=== PATIENT | male | born 1980 | race African-American/Black ===

== ENCOUNTER 2018-11-14 02:56 | Emergency (ER) | payer MEDICARE, MEDICAID ==
[2018-11-14 03:29] LABS: #Basophils 0.1 thou/uL (0.0-0.2); #Eosinphils 0.2 thou/uL (0.0-0.7); #Lymphocytes 4.4 thou/uL (1.20-3.40); #Monocytes 0.8 thou/uL (0.11-0.59); #Neutrophils 6.7 thou/uL (1.40-6.50); %Basophils 0.9 % (0.0-1.0); %Eosinophils 1.9 % (0.0-10.0); %Lymphocytes 36.4 % (21.0-51.0); %Monocytes 6.2 % (0.0-10.0); %Neutrophils 54.6 % (42.0-75.0); Hemoglobin 14.9 g/dL (14.0-18.0); Mean Corpuscular HGB CONC 33.1 g/dL (32.0-36.0); Mean Corpuscular Hemoglobin 28.2 pg (27.0-31.0); Mean Corpuscular Volume 85.3 fL (78.0-98.0); Mean Platelet Volume 7.2 fL (7.4-10.4); Platelet Count 338 thou/uL (130-400); RBC Distribution Width 13.2 % (11.5-14.5); Red Blood Cell (RBC) Count 5.27 mill/uL (4.70-6.10); White Blood Cell (WBC) Count 12.2 thou/uL (4.8-10.8)
[2018-11-14 03:37] LABS: Bilirubin Negative (Negative); Blood, Urine Trace (Negative); Clarity CLEAR (Clear); Glucose, Urine (Dipstick) Negative (Negative); Leukocyte Negative (Negative); Nitrite Negative (Negative); Protein, Urine (Dipstick) Negative (Neg-Trace); Specific Gravity, Urine 1.014 (1.002-1.036)
[2018-11-14 03:38] LABS: Bacteria/HPF None Seen HPF (None Seen); Hyaline Casts/LPF 0-3 HYALINE CAST LPF (0-3 Hyaline); Squamous Epithelial None Seen HPF (0-3); WBC/HPF None Seen HPF (0-3)
[2018-11-14 03:52] LABS: ALT (SGPT) 48 U/L (8-55); AST (SGOT) 20 U/L (5-34); Albumin 4.5 g/dL (3.5-5.0); Alkaline Phosphatase 82 U/L (40-150); Anion Gap 17 mmol/L (10-20); BUN (Urea Nitrogen) 12 mg/dL (8.9-20.6); Bilirubin, Total 0.2 mg/dL (0.2-1.2); Calc. Creatinine Clearance 0 mL/min (70-130); Calcium 9.9 mg/dL (7.8-10.44); Carbon Dioxide 21 mmol/L (22-29); Chloride 108 mmol/L (98-107); Estimated GFR-MDRD Greater than 90; Globulin 3.2 g/dL (2.4-3.5); Glucose 100 mg/dL (70-105); Potassium 3.5 mmol/L (3.5-5.1); Protein, Total 7.7 g/dL (6.0-8.3); Sodium 142 mmol/L (136-145)
[2018-11-14] MEDS ORDERED: cefTRIAXone\\ROCEPHIN 250 MG VIAL ONE (05:15)
[2018-11-14] MEDS ORDERED: Azithromycin 250 MG TAB ONE (05:15)
[2018-11-14] MEDS ORDERED: Lidocaine 1% PF 5 ML VIAL ONE (05:15)
[2018-11-14 21:52] LABS: Chlamydia by PCR Not Detected (NotDetected); GC by PCR Not Detected (NotDetected)
== END 2018-11-14 05:37 | disposition home or self-care (01) ==
LOC: ERS 02:56
DX: N34.1 Nonspecific urethritis (principal)
CPT/HCPCS: 36415; 80053; 81003; 81015; 85025; 87491; 87591; 96372; J0696; J2001

== ENCOUNTER 2019-11-13 17:37 | Emergency (ER) | payer MEDICARE, MEDICAID | END 2019-11-13 19:13 | disposition home or self-care (01) | LOC: ERS 17:37 | DX: B34.9 Viral infection, unspecified (principal); F17.210 Nicotine dependence, cigarettes, uncomplicated | CPT/HCPCS: 99283 ==

== ENCOUNTER 2021-12-12 18:17 | Emergency (ER) | payer MEDICARE, MEDICAID ==
[2021-12-12] MEDS ORDERED: Ondansetron ODT 4 MG TAB ONE (19:24)
[2021-12-12] MEDS ORDERED: cefTRIAXone\\ROCEPHIN 500 MG VIAL ONE (20:06)
[2021-12-12] MEDS ORDERED: Lidocaine 1% PF 5 ML VIAL ONE (20:06)
[2021-12-12] MEDS ORDERED: Azithromycin 250 MG TAB ONE (20:30)
[2021-12-12 21:22] LABS: Bacteria/HPF None Seen HPF (None Seen); Bilirubin Negative (Negative); Blood, Urine Trace (Negative); Clarity Clear (Clear); Glucose, Urine (Dipstick) Normal (Negative); Ketone, Urine 40 mg/dL (Negative); Leukocyte Negative Leu/uL (Negative); Nitrite Negative (Negative); Protein, Urine (Dipstick) Negative (Neg-Trace); RBC/HPF 0-3 HPF (0-3); Squamous Epithelial 0-3 HPF (0-3); Urobilinogen Normal mg/dL (Less than 2); WBC/HPF 0-3 HPF (0-3)
[2021-12-13 15:44] LABS: Chlam.trachomatis by PCR,Urine Not Detected (NotDetected)
== END 2021-12-12 20:33 | disposition home or self-care (01) ==
LOC: ERS 18:17
DX: N34.2 Other urethritis (principal); F17.210 Nicotine dependence, cigarettes, uncomplicated
CPT/HCPCS: 81003; 81015; 87491; 87591; 96372; 99284; J0696; Q0162

== ENCOUNTER 2023-09-21 20:19 | Emergency (ER) | payer OTHER ==
[2023-09-21] MEDS ORDERED: hydrOXYzine 25 MG TAB ONE (20:56)
[2023-09-21 21:09] LABS: Hematocrit 49.9 % (42.0-52.0); Hemoglobin 16.3 g/dL (14.0-18.0); Manual Diff?? YES; Mean Corpuscular HGB CONC 32.7 g/dL (32.0-36.0); Mean Corpuscular Hemoglobin 26.7 pg (27.0-31.0); Mean Corpuscular Volume 81.7 fl (78.0-98.0); Mean Platelet Volume 9.7 fL (7.4-10.4); Platelet Count 273 10x3/uL (130-400); RBC Distribution Width 14.3 % (11.5-14.5); Red Blood Cell (RBC) Count 6.11 mill/uL (4.70-6.10); White Blood Cell (WBC) Count 8.4 10x3/uL (4.8-10.8)
[2023-09-21 21:20] LABS: Delete Auto Diff?? YES
[2023-09-21 21:31] LABS: ALT (SGPT) 22 U/L (8-55); AST (SGOT) 20 U/L (5-34); Albumin 4.5 g/dL (3.5-5.0); Alkaline Phosphatase 69 U/L (40-110); Anion Gap 19 mmol/L (10-20); BUN (Urea Nitrogen) 8 mg/dL (8.9-20.6); Bilirubin, Total 0.4 mg/dL (0.2-1.2); Calc. Creatinine Clearance 0 mL/min (70-130); Calcium 9.2 mg/dL (7.8-10.44); Carbon Dioxide 20 mmol/L (22-29); Chloride 105 mmol/L (98-107); Estimated GFR 110; Glucose 97 mg/dL (70-105); Potassium 3.6 mmol/L (3.5-5.1); Protein, Total 7.5 g/dL (6.0-8.3); Sodium 140 mmol/L (136-145)
[2023-09-21] MEDS ORDERED: Azithromycin 500 MG VIAL ONE ×2 (21:33→21:34)
[2023-09-21 21:40] LABS: Band 2 % (5-11); CellaVision Operator ID lab.abc; Eosinophils 3 % (0-10); Lymphocytes 23 % (21-51); Monocytes 7 % (0-10); Neutrophil 53 % (42-75); Platelet Adequacy Comment Platelets Normal; RBC Morphology Within Normal Limits; Reactive Lymphocytes 12 % (0-10); Smudge Cells 18.6 %; Total Cell Count 102
[2023-09-21] MEDS ORDERED: cefTRIAXone (ROCEPHIN) 500 MG VIAL ONE (21:41)
[2023-09-21] MEDS ORDERED: Lidocaine 1% MPF 2 ML VIAL ONE (21:41)
[2023-09-21 21:58] LABS: SARS-CoV-2 NAA Rapid Test Not Detected (NotDetected)
[2023-09-21 22:09] LABS: Bacteria/HPF None Seen HPF (None Seen); Bilirubin Negative (Negative); Blood, Urine 1+ (Negative); CAUTI Indications for Culture Dysuria,urgency,freq; Clarity Clear (Clear); Glucose, Urine (Dipstick) Normal (Negative); Ketone, Urine 40 mg/dL (Negative); Leukocyte Negative Leu/uL (Negative); Nitrite Negative (Negative); Protein, Urine (Dipstick) 30 mg/dL (Neg-Trace); RBC/HPF 0-3 HPF (0-3); Specific Gravity, Urine 1.018 (1.002-1.036); Squamous Epithelial None Seen HPF (0-3); Urobilinogen Normal mg/dL (Less than 2); WBC/HPF 0-3 HPF (0-3)
[2023-09-21 22:12] LABS: Urine Culture Reflex No No
[2023-09-21 23:48] LABS: Troponin I Less than 0.010 ng/mL (< 0.028)
[2023-09-22 00:41] LABS: Chlam.trachomatis by PCR,Urine Not Detected (NotDetected); GC N.gonorrhoeae PCR,UrineVOID Not Detected (NotDetected)
== END 2023-09-21 23:11 | disposition home or self-care (01) ==
LOC: ERS 20:19
DX: J10.1 Influenza due to other identified influenza virus with other respiratory manifestations (principal); F32.A Depression, unspecified; R03.0 Elevated blood-pressure reading, without diagnosis of hypertension; Z20.2 Contact with and (suspected) exposure to infections with a predominantly sexual mode of transmission; Z20.822 Contact with and (suspected) exposure to COVID-19; F17.210 Nicotine dependence, cigarettes, uncomplicated
CPT/HCPCS: 36415; 71045; 80053; 81001; 84484; 85025; 87491; 87591; 93005; 96372; J0456; J0696

== ENCOUNTER 2023-10-17 16:28 | Emergency (ER) | payer OTHER ==
[2023-10-17] MEDS ORDERED: cefTRIAXone (ROCEPHIN) 500 MG VIAL ONE ×2 (16:51→16:59)
[2023-10-17] MEDS ORDERED: Lidocaine 1% MPF 2 ML VIAL ONE ×2 (16:51→16:59)
== END 2023-10-17 17:12 | disposition home or self-care (01) ==
LOC: ERS 16:28
DX: A54.9 Gonococcal infection, unspecified (principal); F17.210 Nicotine dependence, cigarettes, uncomplicated
CPT/HCPCS: 96372; 99283; J0696

== ENCOUNTER 2023-10-28 09:50 | Emergency (ER) | payer OTHER ==
[2023-10-28 10:30] LABS: Bacteria/HPF None Seen HPF (None Seen); Bilirubin Negative (Negative); Blood, Urine 1+ (Negative); CAUTI Indications for Culture Pelvic or flank pain; Clarity Clear (Clear); Glucose, Urine (Dipstick) Normal (Negative); Ketone, Urine Trace mg/dL (Negative); Leukocyte Negative Leu/uL (Negative); Nitrite Negative (Negative); Protein, Urine (Dipstick) 10 mg/dL (Neg-Trace); RBC/HPF 0-3 HPF (0-3); Squamous Epithelial 0-3 HPF (0-3); Urobilinogen Normal mg/dL (Less than 2); WBC/HPF 0-3 HPF (0-3)
[2023-10-28 10:42] LABS: Urine Culture Reflex No No
[2023-10-28 14:14] LABS: Chlam.trachomatis by PCR,Urine Not Detected (NotDetected); GC N.gonorrhoeae PCR,UrineVOID Not Detected (NotDetected)
== END 2023-10-28 10:55 | disposition home or self-care (01) ==
LOC: ERS 09:50
DX: N48.89 Other specified disorders of penis (principal); R31.29 Other microscopic hematuria; F17.210 Nicotine dependence, cigarettes, uncomplicated
CPT/HCPCS: 81001; 87086; 87491; 87591; 99283

== ENCOUNTER 2024-09-26 10:18 | Emergency (ER) | payer MEDICAID, MEDICARE ==
[2024-09-26 12:27] LABS: Bacteria/HPF None Seen HPF (None Seen); Bilirubin Negative (Negative); Blood, Urine Trace (Negative); CAUTI Indications for Culture Dysuria,urgency,freq; Clarity Clear (Clear); Glucose, Urine (Dipstick) Normal (Negative); Ketone, Urine Negative (Negative); Leukocyte Negative Leu/uL (Negative); Nitrite Negative (Negative); Protein, Urine (Dipstick) 10 mg/dL (Neg-Trace); Specific Gravity, Urine 1.021 (1.002-1.036); Squamous Epithelial None Seen HPF (0-3); Urobilinogen Normal mg/dL (Less than 2); WBC/HPF 0-3 HPF (0-3); pH, Urine 6.5 (5.0-9.0)
[2024-09-26 12:33] LABS: Urine Culture Reflex No No
[2024-09-26] MEDS ORDERED: cefTRIAXone (ROCEPHIN) 500 MG VIAL ONE (12:58)
[2024-09-26] MEDS ORDERED: Lidocaine 1% PF 5 ML VIAL ONE (12:58)
[2024-09-26 18:02] LABS: Chlam.trachomatis by PCR,Urine Not Detected (NotDetected); GC N.gonorrhoeae PCR,UrineVOID Not Detected (NotDetected)
== END 2024-09-26 13:08 | disposition home or self-care (01) ==
LOC: ERS 10:18
DX: A63.0 Anogenital (venereal) warts (principal); F17.210 Nicotine dependence, cigarettes, uncomplicated; Z55.6 Problems related to health literacy
CPT/HCPCS: 81001; 87491; 87591; J0696; 96372; 99283